=== PATIENT | male | born 1990 | race Caucasian/White ===

== ENCOUNTER 2018-05-18 15:02 | Emergency (ER) | payer BC, OTHER ==
[2018-05-18 15:29] VITALS: BP 96/77
--- NOTE | 2018-05-18 16:16 | EDPHY ---
H & P Time Seen by Provider: 05/18/18 15:49 HPI/ROS: cc: left wrist pain HPI: 27yo male presents with left wrist pain. 2 days ago, a 65 lb box fell directly onto his left wrist/forearm. Moderate pain left wrist and forearm since the injury. Pain increases with movement. Also c/o left pinky deformity after an injury 2 years ago. ROS: no numbness, weakness, bleeding or other injury Past Medical/Surgical History: Denies Smoking Status: Current every day smoker Physical Exam: Alert and oriented, pleasant Extremities: Left upper extremity: left pinky deformity at PIP, unable to extend at PIP greater than 60 degrees; left wrist NT, ROM causes left forearm pain; left forearm mild tenderness and swelling; elbow ROM without pain Skin: Intact Neuro: Motor and sensory intact Vascular: Capillary refill brisk distally Constitutional: Initial Vital Signs Temperature (C) 37 C 05/18/18 15:27 Heart Rate 89 05/18/18 15:27 Respiratory Rate 16 05/18/18 15:27 Blood Pressure 96/77 L 05/18/18 15:27 O2 Sat (%) 97 05/18/18 15:27 O2 Delivery Mode Room Air Allergies/Adverse Reactions: elk steak Allergy (Uncoded 05/18/18 15:26) tilapia Allergy (Uncoded 05/18/18 15:26) Medical Decision Making - Diagnostics Imaging Results: Imaging Impressions Forearm X-Ray 05/18/18 15:30 Impression: No acute osseous findings. Hand X-Ray 05/18/18 15:30 Impression: No acute osseous findings. Wrist X-Ray 05/18/18 15:30 Impression: No acute osseous findings. Left hand, wrist and for him x-rays interpreted by me: No acute fracture or dislocation Imaging: I viewed and interpreted images myself ED Course/Re-evaluation: This patient presents with left forearm and wrist pain after a heavy object fell on his arm. X-rays are unremarkable. A Velcro wrist splint was placed. He was strongly encouraged to follow up with Hand surgery, especially given the chronic left pinky injury and inability to use the finger normally. Departure - Departure Disposition: Home, Routine, Self-Care Clinical Impression: Contusion of left wrist Qualifiers: Encounter type: initial encounter Qualified Code(s): S60.212A - Contusion of left wrist, initial encounter Condition: Good Instructions: Contusion in Adults (ED) Additional Instructions: Ibuprofen 600mg 3 times daily for pain. Wear splint for comfort. Referrals: Matthew Streeter MD [Medical Doctor] - As per Instructions (Call to make an appointment. ) Stand Alone Forms: Work Excuse
== END 2018-05-18 16:38 | disposition home or self-care (01) ==
DX: S60.212A Contusion of left wrist, initial encounter (principal); W20.8XXA Other cause of strike by thrown, projected or falling object, initial encounter
CPT/HCPCS: L3984

== ENCOUNTER 2018-07-05 16:05 | Emergency (ER) | payer OTHER ==
[2018-07-05 16:09] VITALS: BP 115/78
[2018-07-05] MEDS ORDERED: AMOXICILLIN/CLAVULANATE POT 875/125 MG TAB PO ONE (16:39)
--- NOTE | 2018-07-05 16:42 | EDPHY ---
H & P Stated Complaint: N/V, dizziness and has a possible "tooth abscess". Time Seen by Provider: 07/05/18 16:31 HPI/ROS: CHIEF COMPLAINT: Dental infection HISTORY OF PRESENT ILLNESS: The patient is a 28-year-old man whose had cavities and increasing dental pain in tooth 2 for the last several weeks. He presented to a dentist today who recommended he start antibiotics and have it extracted by an oral surgeon. He then told the dentist that he was having trouble breathing and feeling nauseous because it hurts so bad and so the dentist told him to come to the ER. He denies trouble breathing to me. He denies feeling nauseous any longer. He is not having trouble talking or eating. Severity: Moderate Modifying factors: None REVIEW OF SYSTEMS: Constitutional: denies: chills, fever, recent illness, recent injury EENTM: denies: blurred vision, double vision, nose congestion Respiratory: denies: cough, shortness of breath Cardiac: denies: chest pain, irregular heart rate, lightheadedness, palpitations Gastrointestinal/Abdominal: denies: abdominal pain, diarrhea, nausea, vomiting, blood streaked stools Genitourinary: denies: dysuria, frequency, hematuria, pain Musculoskeletal: denies: joint pain, muscle pain Skin: denies: lesions, rash, jaundice, bruising Neurological: denies: headache, numbness, paresthesia, tingling, dizziness, weakness Hematologic/Lymphatic: denies: blood clots, easy bleeding, easy bruising Immunologic/allergic: denies: HIV/AIDS, transplant 10 systems reviewed and negative except as noted EXAM: GENERAL: Well-appearing, well-nourished and in no acute distress. HEAD: Atraumatic, normocephalic. EYES: Pupils equal round and reactive to light, extraocular movements intact, sclera anicteric, conjunctiva are normal. ENT: Tooth 2. With significant DKA, no visible abscess. No swelling of cheek mouth or parotid gland. TMs normal, nares patent, oropharynx clear without exudates. Moist mucous membranes. No stridor NECK: Normal range of motion, supple without lymphadenopathy or JVD. LUNGS: Breath sounds clear to auscultation bilaterally and equal. No wheezes rales or rhonchi. HEART: Regular rate and rhythm without murmurs, rubs or gallops. ABDOMEN: Soft, nontender, normoactive bowel sounds. No guarding, no rebound. No masses appreciated. BACK: No CVA tenderness, no spinal tenderness, step-offs or deformities EXTREMITIES: Normal range of motion, no pitting or edema. No clubbing or cyanosis. NEUROLOGICAL: Cranial nerves II through XII grossly intact. Normal speech, normal gait. 5/5 strength, normal movement in all extremities, normal sensation , normal reflexes PSYCH: Normal mood, normal affect. SKIN: Warm, dry, normal turgor, no visible rashes or lesions. Source: Patient Exam Limitations: No limitations - Personal History Current Tetanus Diphtheria and Acellular Pertussis (TDAP): Yes Tetanus Vaccine Date: < 10 years - Medical/Surgical History Hx Asthma: No Hx Chronic Respiratory Disease: No Hx Diabetes: No Hx Cardiac Disease: No Hx Renal Disease: No Hx Cirrhosis: No Hx Alcoholism: No Hx HIV/AIDS: No Hx Splenectomy or Spleen Trauma: No Other PMH: Nasal surgery - Family History Significant Family History: No pertinent family hx - Social History Smoking Status: Current every day smoker Alcohol Use: Sober Drug Use: None Constitutional: Initial Vital Signs Temperature (C) 36.6 C 07/05/18 16:06 Heart Rate 60 07/05/18 16:06 Respiratory Rate 16 07/05/18 16:06 Blood Pressure 115/78 07/05/18 16:06 O2 Sat (%) 99 07/05/18 16:06 O2 Delivery Mode Room Air Allergies/Adverse Reactions: elk steak Allergy (Uncoded 05/18/18 15:26) tilapia Allergy (Uncoded 05/18/18 15:26) Home Medications: Medication Instructions Recorded Amoxicillin/Clavulanate Pot 875 mg PO BID #14 tab 07/05/18 [Augmentin 875Mg] Medical Decision Making ED Course/Re-evaluation: Patient has dental caries and likely a periapical abscess. No abscess that is amenable to drainage here in the ER. No facial swelling or parotid gland inflammation or tenderness. I will start him on antibiotics and give him follow -up to have his tooth extracted. I spoke with his mom at length on the phone who understands and agrees with this plan. Differential Diagnosis: Partial list of the Differential diagnosis considered include but were not limited to; dental cavity, dental abscess and although unlikely based on the history and physical exam, I also considered facial abscess, parotid tightness, salivary gland stone. I discussed these differential diagnoses and the plan with the patient as well as the usual and expected course. The patient understands that the diagnosis is provisional and that in medicine we are not always correct and that further workup is often warranted. Usual and customary warnings were given. All of the patient's questions were answered. The patient was instructed to return to the emergency department should the symptoms at all worsen or return, otherwise to followup with the physician as we discussed. - Data Points Medications Given: Discontinued Medications Amoxicillin/Clavulanate Potassium (Augmentin 875mg) 875 mg PO EDNOW ONE PRN Reason: Protocol Stop: 07/05/18 16:40 Last Admin: 07/05/18 16:46 Dose: 875 mg Departure - Departure Disposition: Home, Routine, Self-Care Clinical Impression: Infected dental carries Condition: Fair Instructions: Dental Abscess (ED) Referrals: NONE *PRIMARY CARE P,. [Primary Care Provider] - As per Instructions [facility] [Outside] - As per Instructions [facility] [Outside] - As per Instructions [facility] [Outside] - As per Instructions Prescriptions: Amoxicillin/Clavulanate Pot [Augmentin 875Mg] 875 mg PO BID #14 tab
== END 2018-07-05 17:00 | disposition home or self-care (01) ==
DX: K02.9 Dental caries, unspecified (principal)